=== PATIENT | male | born 1980 | race Two or more races ===

== ENCOUNTER 2023-10-26 21:14 | Emergency (ER) | payer MEDICAID, OTHER ==
[~2023-10-26] VITALS: Ht 180.3 cm; Wt 113.0 kg
[2023-10-26] MEDS ORDERED: IBUP-1456 PO (23:44)
[2023-10-26] MEDS ORDERED: AZIT-43 PO (23:44)
[2023-10-27 00:07] VITALS: BP 128/87; PULSE 110; RESP 18; TEMP 98; O2SAT 96
[2023-10-27] MEDS: KETOROLAC TROMETH 60MG/2ML VIAL IM ONE (00:14)
== END 2023-10-27 00:31 | disposition home or self-care (01) ==
LOC: ER 21:14
DX: S83.8X2A Sprain of other specified parts of left knee, initial encounter (principal); J06.9 Acute upper respiratory infection, unspecified; F31.9 Bipolar disorder, unspecified; Z98.890 Other specified postprocedural states; Z79.899 Other long term (current) drug therapy; W18.39XA Other fall on same level, initial encounter; Y93.39 Activity, other involving climbing, rappelling and jumping off; Y92.89 Other specified places as the place of occurrence of the external cause; Y99.8 Other external cause status
CPT/HCPCS: 29505; 73562; 96372; 99283; J1885